=== PATIENT | female | born 1960 | race American Indian/Alaskan Native ===

== ENCOUNTER 2019-04-21 13:19 | Emergency (ER) | payer BC, OTHER ==
[2019-04-21] MEDS ORDERED: FIORICET PO ONE (14:30)
[2019-04-21] MEDS ORDERED: REGLAN IV ONE (14:30)
[2019-04-21] MEDS ORDERED: NACL 0.9% 500 ML 500 ML IV ONE (14:31)
[2019-04-21] MEDS ORDERED: XYLOCAINE TOPICAL 4% TP ONE (14:31)
--- NOTE | 2019-04-21 14:32 | Emergency Department Report ---
ED Chest Pain HPI - General Chief Complaint: Chest Pain Stated Complaint: CHEST PAIN Time Seen by Provider: 04/21/19 13:55 Source: patient, EMS (ems notes not available at time of chart dictation), RN notes reviewed Mode of arrival: Stretcher Limitations: No Limitations - History of Present Illness Initial Comments: This is a 58-year-old female. The patient is not known to this provider previously. The patient follows with the [facility]. Includes hypertension. The patient is brought to the hospital by EMS for multiple complaints. Her first complaint is headache and dizziness. The headache is frontal. It was present upon waking up this morning. The headache did not wake her up from sleep. The headache is not sudden or thunderclap in nature. The headache is not maximal in intensity. This headache is not the worse headache of her life; she had a worse headache a few years ago. Her dizziness is described as a sensation of "I just feel awful." There is no vertigo, no tinnitus, no ataxia, no blurry vision. There is no neck pain, no neck stiffness, no sore throat, no extremity weakness or numbness. The patient endorses a secondary complaint of left-sided chest pain. The pain has been present upon waking up. It does not radiate to the back, arms or neck. There is no vomiting or diaphoresis. There is no exertional shortness of breath. The patient denies DVT, pulmonary embolism risk factors. She may have taken an aspirin in the past 3 days, she is not certain. Of note, the patient reports that she feels "very stressed out." She reports that she has a sick family member, currently on hospice, and this is causing a great deal of emotional stress for her. Furthermore, t other family members apparently did not agree on the care of this aforementioned sick family member, and this is leading to verbal disagreements among family members. The patient states all of her symptoms are resolved at this time, and she is asking to eat. Complaint: chest pain, other -: Gradual Onset: other Pain Location: left chest, other Pain Radiation: none Severity scale (0 -10): 5 Quality: other Context: other Aspirin use within the Past 7 Days: (1) Yes - Related Data Home Medications Medication Instructions Recorded Confirmed Last Taken Hydrochlorothiazide 12.5 mg PO DAILY 12/26/14 12/26/14 12/25/14 Ibuprofen 800 mg PO PRN PRN 12/26/14 12/26/14 12/25/14 Lisinopril 10 mg PO DAILY 12/26/14 12/26/14 12/25/14 amLODIPine 5 mg PO DAILY 12/26/14 12/26/14 12/25/14 Previous Rx's Medication Instructions Recorded Last Taken Type Aspirin [Aspirin BABY CHEW TAB] 81 mg PO QDAY #30 tab.chew 04/21/19 Unknown Rx Famotidine [Pepcid] 20 mg PO QDAY #30 tablet 04/21/19 Unknown Rx Allergies Allergy/AdvReac Type Severity Reaction Status Date / Time No Known Allergies Allergy Verified 12/26/14 09:07 Heart Score - HEART Score History: Slightly suspicious EKG: Non-specific Age: 45-65 Risk factors: 1-2 risk factors Troponin: < normal limit HEART Score: 3 - Critical Actions Critical Actions: 0-3 pts:0.9-1.7%risk of adverse cardiac event.Candidate for discharge ED Review of Systems ROS: Stated complaint: CHEST PAIN Other details as noted in HPI Constitutional: denies: fever Eyes: denies: eye discharge ENT: denies: epistaxis Respiratory: denies: cough Cardiovascular: chest pain Gastrointestinal: denies: abdominal pain Genitourinary: denies: dysuria Musculoskeletal: denies: back pain Skin: denies: lesions Neurological: headache. denies: weakness Psychiatric: anxiety ED Past Medical Hx - Past Medical History Previous Medical History?: Yes Hx Hypertension: Yes (18yrs ago) Hx GERD: Yes Hx Headaches / Migraines: Yes Hx Seizures: Yes - Social History Smoking Status: Never Smoker Substance Use Type: None - Medications Home Medications: Home Medications Medication Instructions Recorded Confirmed Last Taken Type Hydrochlorothiazide 12.5 mg PO DAILY 12/26/14 12/26/14 12/25/14 History Ibuprofen 800 mg PO PRN PRN 12/26/14 12/26/14 12/25/14 History Lisinopril 10 mg PO DAILY 12/26/14 12/26/14 12/25/14 History amLODIPine 5 mg PO DAILY 12/26/14 12/26/14 12/25/14 History Aspirin [Aspirin BABY CHEW TAB] 81 mg PO QDAY #30 tab.chew 04/21/19 Unknown Rx Famotidine [Pepcid] 20 mg PO QDAY #30 tablet 04/21/19 Unknown Rx ED Physical Exam - General Limitations: No Limitations General appearance: alert, in no apparent distress - Head Head exam: Present: atraumatic, normocephalic - Eye Eye exam: Present: normal appearance, PERRL, EOMI, other (visual acuity intact to finger counting, color perception, reading at a close distance). Absent: nystagmus - ENT ENT exam: Present: normal exam, normal orophraynx, mucous membranes moist, norm al external ear exam - Neck Neck exam: Present: normal inspection, full ROM. Absent: tenderness, meningismus - Respiratory Respiratory exam: Present: normal lung sounds bilaterally. Absent: respiratory distress - Cardiovascular Cardiovascular Exam: Present: regular rate, normal rhythm, normal heart sounds. Absent: bradycardia, tachycardia, irregular rhythm, systolic murmur, diastolic murmur, rubs, gallop - GI/Abdominal GI/Abdominal exam: Present: soft, normal bowel sounds. Absent: distended, tenderness, guarding, rebound, rigid, pulsatile mass - Extremities Exam Extremities exam: Present: normal inspection, full ROM, other (2+ pulses noted in the bilateral upper, lower extremities. Compartments soft. No long bony tenderness. The pelvis is stable.). Absent: pedal edema, joint swelling, calf tenderness - Back Exam Back exam: Present: normal inspection, full ROM. Absent: tenderness, CVA tenderness (R), CVA tenderness (L), paraspinal tenderness, vertebral tenderness - Neurological Exam Neurological exam: Present: alert, oriented X3, normal gait (there is no pass pointing. There is normal [id number]. There is negative pronator drift. There is normal gait.), other (Extraocular movements intact. Tongue midline. No facial droop. Facial sensation intact to light touch in the V1, V2, V3 distribution bilaterally. 5 and 5 strength in 4 extremities.. Sensation is intact to light touch in 4 extremities.). Absent: motor sensory deficit - Psychiatric Psychiatric exam: Present: normal affect, normal mood - Skin Skin exam: Present: warm, dry, intact, normal color. Absent: rash ED Course Vital Signs 04/21/19 04/21/19 04/21/19 13:30 14:00 14:15 Temperature 98.2 F Pulse Rate 81 73 Respiratory 13 16 18 Rate Blood Pressure 158/95 153/96 Blood Pressure 158/95 [Left] O2 Sat by Pulse 99 100 100 Oximetry 04/21/19 04/21/19 04/21/19 14:30 15:00 15:30 Temperature Pulse Rate 77 78 74 Respiratory 12 15 14 Rate Blood Pressure 165/103 157/103 172/99 Blood Pressure [Left] O2 Sat by Pulse 98 100 99 Oximetry 04/21/19 04/21/19 04/21/19 16:23 16:31 17:27 Temperature Pulse Rate 96 H 73 Respiratory 16 16 Rate Blood Pressure 159/101 159/101 159/101 Blood Pressure [Left] O2 Sat by Pulse 98 100 100 Oximetry 04/21/19 17:31 Temperature Pulse Rate 77 Respiratory 18 Rate Blood Pressure 159/101 Blood Pressure [Left] O2 Sat by Pulse 100 Oximetry - Reevaluation(s) Reevaluation #1: 04/21/19 15:24 Differential diagnosis, including not limited to: GERD, gastritis, hiatal hernia, costochondritis, acute coronary syndrome, pneumonia, anxiety, migraine headache, tension headache, cluster headache, situational anxiety, situational headache Assessment and plan: 58-year-old female with a number of complaints, in the context of a sick family member, who objectively speaking, is afebrile, with reassuring vital signs, walks with a steady gait, has a nonfocal neurologic examination, GCS of 15, NIH score of 0, low risk by well's criteria, no risk by heart score, low risk by ROSALINDA score, with no pulmonary embolism or DVT risk factors. Patient appears quite comfortable on her stretcher at this point in time. Screening laboratory studies ordered. We will obtain CT scan of the brain, basic laboratory studies, EKG 2, and troponin 2. We have contacted the local [facility], and discussed with the physician coordinator, Dr. TEIXEIRA who agrees to arrange close outpatient follow-up, with cardiology, assuming no emergent condition is identified here in the ER. Reevaluation #2: 04/21/19 17:19 Patient eating food and speaking comfortably with family and in no acute distres s. X-ray of the chest unremarkable. CT scan of the brain unremarkable for acute findings. EKG #2 unremarkable. [facility] has provided patient with outpatient follow-up. Troponin #2 is pending at this time. Reevaluation #3: 04/21/19 18:34 Patient reassessed multiple times while here in the department. Having a full conversation with friends and family members. Eating food without difficulty. EKG unchanged 2. Troponin is negative 2. Objective testing unremarkable. Repeat neurologic examination unremarkable. Patient is suitable to follow up as an outpatient. ROSALINDA score - Rosalinda Score Age > 65: (0) No Aspirin use within the Past 7 Days: (1) Yes 3 or more CAD Risk Factors: (0) No 2 or more Angina events in past 24 hrs: (0) No Known CAD with more than 50% Stenosis: (0) No Elevated Cardiac Markers: (0) No ST Deviation Greater than 0.5mm: (0) No ROSALINDA Score: 1 ED Medical Decision Making - Lab Data Result diagrams: 04/21/19 14:35 04/21/19 14:35 Vital Signs 04/21/19 13:30 Temperature 98.2 F Pulse Rate 80 Respiratory 14 Rate Blood Pressure 158/95 Blood Pressure 158/95 [Left] O2 Sat by Pulse 100 Oximetry Lab Results 04/21/19 04/21/19 04/21/19 Range/Units 14:35 14:35 14:35 WBC 11.6 H (4.5-11.0) K/mm3 RBC 4.52 (3.65-5.03) M/mm3 Hgb 12.3 (10.1-14.3) gm/dl Hct 36.6 (30.3-42.9) % MCV 81 (79-97) fl MCH 27 L (28-32) pg MCHC 34 (30-34) % RDW 14.0 (13.2-15.2) % Plt Count 226 (140-440) K/mm3 Lymph % (Auto) 27.3 (13.4-35.0) % [place] % (Auto) 6.2 (0.0-7.3) % Eos % (Auto) 0.5 (0.0-4.3) % Baso % (Auto) 0.8 (0.0-1.8) % Lymph # 3.2 (1.2-5.4) K/mm3 [place] # 0.7 (0.0-0.8) K/mm3 Eos # 0.1 (0.0-0.4) K/mm3 Baso # 0.1 (0.0-0.1) K/mm3 Seg Neutrophils % 65.2 (40.0-70.0) % Seg Neutrophils # 7.6 (1.8-7.7) K/mm3 PT 13.6 (12.2-14.9) Sec. INR 1.07 (0.87-1.13) APTT 27.4 (24.2-36.6) Sec. Sodium 140 (137-145) mmol/L Potassium 4.1 (3.6-5.0) mmol/L Chloride 105.9 (98-107) mmol/L Carbon Dioxide 23 (22-30) mmol/L Anion Gap 15 mmol/L BUN 10 (7-17) mg/dL Creatinine 0.6 L (0.7-1.2) mg/dL Estimated GFR > 60 ml/min BUN/Creatinine Ratio 17 % Glucose 89 (65-100) mg/dL Calcium 9.6 (8.4-10.2) mg/dL Magnesium (1.7-2.3) mg/dL Total Creatine Kinase (30-135) units/L Troponin T < 0.010 (0.00-0.029) ng/mL Plasma/Serum Alcohol (0-0.07) % 04/21/19 04/21/19 Range/Units 14:35 14:35 WBC (4.5-11.0) K/mm3 RBC (3.65-5.03) M/mm3 Hgb (10.1-14.3) gm/dl Hct (30.3-42.9) % MCV (79-97) fl MCH (28-32) pg MCHC (30-34) % RDW (13.2-15.2) % Plt Count (140-440) K/mm3 Lymph % (Auto) (13.4-35.0) % [place] % (Auto) (0.0-7.3) % Eos % (Auto) (0.0-4.3) % Baso % (Auto) (0.0-1.8) % Lymph # (1.2-5.4) K/mm3 [place] # (0.0-0.8) K/mm3 Eos # (0.0-0.4) K/mm3 Baso # (0.0-0.1) K/mm3 Seg Neutrophils % (40.0-70.0) % Seg Neutrophils # (1.8-7.7) K/mm3 PT (12.2-14.9) Sec. INR (0.87-1.13) APTT (24.2-36.6) Sec. Sodium (137-145) mmol/L Potassium (3.6-5.0) mmol/L Chloride (98-107) mmol/L Carbon Dioxide (22-30) mmol/L Anion Gap mmol/L BUN (7-17) mg/dL Creatinine (0.7-1.2) mg/dL Estimated GFR ml/min BUN/Creatinine Ratio % Glucose (65-100) mg/dL Calcium (8.4-10.2) mg/dL Magnesium 2.10 (1.7-2.3) mg/dL Total Creatine Kinase 128 (30-135) units/L Troponin T (0.00-0.029) ng/mL Plasma/Serum Alcohol < 0.01 (0-0.07) % - EKG Data -: EKG Interpreted by Dc EKG shows normal: sinus rhythm Rate: normal - EKG Data When compared to previous EKG there are: previous EKG unavailable 04/21/19 15:26 This is a normal sinus rhythm, 69 beats a minute, normal axis, left ventricular hypertrophy, Q waves noted in aVL, no prior EKG for comparison, the QTC is within normal limits, the EKG is abnormal, the EKG is not consistent with ST elevation myocardial infarction. - Radiology Data Radiology results: report reviewed, image reviewed Critical care attestation.: If time is entered above; I have spent that time in minutes in the direct care of this critically ill patient, excluding procedure time. ED Disposition Clinical Impression: Frontal headache, History of chest pain Disposition: DC-01 TO HOME OR SELFCARE Is pt being admited?: No Does the pt Need Aspirin: No Condition: Stable Additional Instructions: Continue current outpatient medications. Take aspirin as directed. Follow up within the next 5-7 days with outpatient primary care doctor, or piper helper, as scheduled by [facility]. Return to the emergency room right away with new, worsened or different symptoms, or symptoms not present on the initial emergency room evaluation. drink 4-6 cups of water per day, every day, notably consumption of Motrin, ibuprofen, Naprosyn, Aleve, heavy, spicy foods. Pt to follow up with [facility]iology Office located at [address] [address] Appointment is with Dr. Cameron on 04/28/2019 at 1000. Pt may call [phone] to cancel or discuss appointment Prescriptions: Aspirin [Aspirin BABY CHEW TAB] 81 mg PO QDAY #30 tab.chew Famotidine [Pepcid] 20 mg PO QDAY #30 tablet Referrals: ENRIKE OROSCO MD [Primary Care Provider] - 3-5 Days [facility] [Provider Group] - 3-5 Days
--- NOTE | 2019-04-21 14:51 | XRay Report ---
CHEST 1 VIEW INDICATION: Chest Pain. COMPARISON: None FINDINGS: Support devices: None. Heart: Within normal limits. Lungs/Pleura: No acute air space or interstitial disease. Additional findings: None. IMPRESSION: No acute findings. Signer Name: Bry Dumont Jr, MD Signed: 04/21/2019 2:47 PM Workstation Name: [id number]
[2019-04-21 15:02] LABS: Basophils # (Auto) 0.1 K/mm3 (0.0-0.1); Basophils % (Auto) 0.8 % (0.0-1.8); Eosinophils # (Auto) 0.1 K/mm3 (0.0-0.4); Eosinophils % (Auto) 0.5 % (0.0-4.3); Hematocrit 36.6 % (30.3-42.9); Hemoglobin 12.3 gm/dl (10.1-14.3); Lymphocytes # (Auto) 3.2 K/mm3 (1.2-5.4); Lymphocytes % (Auto) 27.3 % (13.4-35.0); Mean Corpuscular HGB Conc 34 % (30-34); Mean Corpuscular Volume 81 fl (79-97); Monocytes # (Auto) 0.7 K/mm3 (0.0-0.8); Monocytes % (Auto) 6.2 % (0.0-7.3); Platelet Count 226 K/mm3 (140-440); Red Blood Count 4.52 M/mm3 (3.65-5.03)
[2019-04-21 15:11] LABS: INR 1.07 (0.87-1.13)
[2019-04-21 15:12] LABS: Partial Thromboplastin Time 27.4 Sec. (24.2-36.6)
[2019-04-21 15:23] LABS: BUN/Creatinine Ratio 17; Blood Urea Nitrogen 10 mg/dL (7-17); Calcium 9.6 mg/dL (8.4-10.2); Hemolysis Index 17
--- NOTE | 2019-04-21 16:47 | Cat Scan Report ---
CT head/brain wo con INDICATION / CLINICAL INFORMATION: 58 years Female; frontal knutson w dizzy. TECHNIQUE: Routine CT head without contrast. All CT scans at this location are performed using CT dos e reduction for ALARA by means of automated exposure control. COMPARISON: None. FINDINGS: BRAIN / INTRACRANIAL CONTENTS: The possibility of a small arachnoid cyst in the temporal horn of the right lateral ventricle, which should be of no clinical significance. Otherwise, no acute hemorrhage, mass effect, midline shift, hydrocephalus, or acute, large territoria l infarct. No chronic infarct or focal atrophy. Normal brain volume and ventricular/sulcal size for a ge. Minimal, nonspecific white matter disease suggested in the cerebral hemispheres. CRANIOCERVICAL JUNCTION: No significant abnormality. ORBITS: No significant abnormality of visualized orbits. SINUSES / MASTOIDS: No significant abnormality of the visualized paranasal sinuses or mastoid air heather ls. ADDITIONAL FINDINGS: Atherosclerotic disease seen in the anterior and posterior circulation. IMPRESSION: 1. No focal intra-axial mass, hemorrhage, hydrocephalus, or acute, large territorial infarct. Signer Name: Deepak Perez MD, III Signed: 04/21/2019 4:42 PM Workstation Name: [id number]
[2019-04-21 18:28] VITALS: BP 159/101
== END 2019-04-21 18:50 | disposition home or self-care (01) ==
LOC: ED 13:19
DX: G43.909 Migraine, unspecified, not intractable, without status migrainosus (principal); R07.89 Other chest pain; I10 Essential (primary) hypertension; K21.9 Gastro-esophageal reflux disease without esophagitis; Z79.899 Other long term (current) drug therapy
CPT/HCPCS: 36415; 70450; 71045; 80048; 82550; 83735; 84484; 85025; 85610; 85730; 93005; 93010; 96361; 96374; 99285; J2765; J7040; 80320; G0480